=== PATIENT | male | born 1990 | race Two or more races ===

== ENCOUNTER 2022-10-04 17:09 | Emergency (ER) | payer OTHER ==
[~2022-10-04] VITALS: Ht 182.9 cm; Wt 150.0 kg
[2022-10-04] MEDS ORDERED: FAMOTIDINE 20 MG TAB PO ONE (19:45)
[2022-10-04] MEDS ORDERED: IBUPROFEN 400 MG TAB PO ONE (19:45)
[2022-10-04] MEDS ORDERED: ACETAMINOPHEN 325 MG TAB PO ONE (19:45)
[2022-10-04] MEDS ORDERED: ONDANSETRON ODT 4 MG TAB PO ONE ×2 (19:45→23:00)
[2022-10-04 20:41] LABS: Albumin 3.9 g/dL (3.4-5.0); Calcium 9.5 mg/dL (8.5-10.1); Potassium 4.3 mmol/L (3.5-5.1)
[2022-10-04 20:43] LABS: BUN/Creatinine Ratio 18.5; Basophils # (auto) 0 10 ^3/uL (0-0.2); Basophils % (auto) 0.3 % (0.0-2.0); Bilirubin, Total 0.6 mg/dL (0.2-1.0); Eosinophils # (auto) 0 10 ^3/uL (0-0.8); Eosinophils % (auto) 0.4 % (0.0-7.0); Hematocrit 46.1 % (41.0-53.0); Hemoglobin 15.8 g/dL (13.5-17.5); Lymphocytes # (auto) 2.1 10 ^3/uL (0.4-5.4); Lymphocytes % (auto) 19.5 % (10.0-50.0); Mean Corpuscular Hemoglobin 28.6 pg (28.0-32.0); Mean Corpuscular Hgb Conc. 34.3 g/dL (32.0-36.0); Mean Corpuscular Volume 83.5 fL (80.0-100.0); Monocytes # (auto) 0.6 10 ^3/uL (0-1.3); Monocytes % (auto) 5.6 % (0.0-12.0); Neutrophils # (auto) 7.8 10 ^3/uL (1.6-8.6); Neutrophils % (auto) 74.2 % (37.0-80.0); Red Blood Cells 5.52 10^6/uL (4.5-5.90); Total Protein 8.4 g/dL (6.4-8.2); White Blood Cell 10.6 10^3/uL (4.4-10.8)
[2022-10-04 20:59] LABS: Urine Bacteria NONE SEEN /hpf (None Seen); Urine Blood 1+ /uL (Negative); Urine Mucus FEW (None Seen); Urine Specific Gravity 1.032 (1.001-1.035); Urine WBC 1 /hpf (0 - 3)
[2022-10-04 21:12] LABS: Alcohol, Urine < 3.0 mg/dL (0-10); Amphetamine Screen, Urine POSITIVE (NEGATIVE); Barbiturate Scree,Urine NEGATIVE (NEGATIVE); Benzodiazephine Screen, Urine NEGATIVE (NEGATIVE); Cannabinoid Screen, Urine POSITIVE (NEGATIVE); Cocaine Screen, Urine POSITIVE (NEGATIVE); Opiate Scree,Urine NEGATIVE (NEGATIVE); Phencyclidine Screen, Urine NEGATIVE (NEGATIVE)
[2022-10-04] MEDS ORDERED: HALOPERIDOL LACTATE 5 MG/ML INJ VIAL IM ONE (22:15)
[2022-10-04] MEDS ORDERED: MORPHINE SULFATE 4 MG/ML SYR/VIAL IM ONE (23:00)
[2022-10-04] MEDS ORDERED: ONDA-144 PO (23:54)
[2022-10-04] MEDS ORDERED: FAMO20TA10 PO (23:54)
[2022-10-05 00:58] VITALS: BP 125/83
== END 2022-10-05 01:01 | disposition home or self-care (01) ==
LOC: ER 17:09
DX: K29.70 Gastritis, unspecified, without bleeding (principal); Z79.899 Other long term (current) drug therapy
CPT/HCPCS: 36415; 74176; 76705; 80053; 80307; 81001; 83690; 84484; 85025; 99284; Q0162

== ENCOUNTER → 2022-10-09 | Outpatient (CLI) | payer OTHER ==
[~2022-10-09] MED LIST: FAMO20TA10 PO; ONDA-144 PO
[2022-10-09 17:08] LABS: BUN/Creatinine Ratio 12.8; Calcium 9.4 mg/dL (8.5-10.1); Potassium 3.8 mmol/L (3.5-5.1)
[2022-10-09 18:45] LABS: Urine Specific Gravity 1.023 (1.001-1.035)
[2022-10-09 18:46] LABS: Urine Blood Trace /uL (Negative)
== END | disposition home or self-care (01) ==
LOC: LAB 16:08
PROVIDERS: ATTEND Internal Medicine
DX: Z00.00 Encounter for general adult medical examination without abnormal findings (principal); E66.01 Morbid (severe) obesity due to excess calories
CPT/HCPCS: 36415; 80048; 80061; 81001; 83036; 86703

== ENCOUNTER 2022-10-31 08:31 | Day surgery (SDC) | payer OTHER ==
[2022-10-28 12:06] LABS: Urine Bacteria NONE SEEN /hpf (None Seen); Urine Blood Negative /uL (Negative); Urine Mucus FEW (None Seen); Urine Specific Gravity 1.022 (1.001-1.035); Urine WBC <1 /hpf (0 - 3)
[2022-10-28 12:26] LABS: INR 0.91 (0.9-1.15)
[2022-10-28 12:32] LABS: Albumin 3.5 g/dL (3.4-5.0); Potassium 4.1 mmol/L (3.5-5.1)
[2022-10-28 12:35] LABS: BUN/Creatinine Ratio 17.3
[2022-10-28 12:38] LABS: Bilirubin, Total 0.4 mg/dL (0.2-1.0); Total Protein 7.8 g/dL (6.4-8.2)
[2022-10-28 13:18] LABS: Basophils # (auto) 0.1 10 ^3/uL (0-0.2); Basophils % (auto) 0.9 % (0.0-2.0); Eosinophils # (auto) 0.1 10 ^3/uL (0-0.8); Eosinophils % (auto) 1.1 % (0.0-7.0); Hematocrit 41.1 % (41.0-53.0); Hemoglobin 14.3 g/dL (13.5-17.5); Lymphocytes # (auto) 1.8 10 ^3/uL (0.4-5.4); Lymphocytes % (auto) 24.3 % (10.0-50.0); Mean Corpuscular Hgb Conc. 34.9 g/dL (32.0-36.0); Mean Corpuscular Volume 83.2 fL (80.0-100.0); Monocytes # (auto) 0.6 10 ^3/uL (0-1.3); Monocytes % (auto) 8.1 % (0.0-12.0); Neutrophils # (auto) 4.8 10 ^3/uL (1.6-8.6); Neutrophils % (auto) 65.6 % (37.0-80.0); Red Blood Cells 4.94 10^6/uL (4.5-5.90); Red Cell Distribution Width 14.2 % (11.8-14.3); White Blood Cell 7.3 10^3/uL (4.4-10.8)
[~2022-10-31] VITALS: Ht 185.4 cm; Wt 167.8 kg
[~2022-10-31 08:31] MED LIST changes: -FAMO20TA10 PO; -ONDA-144 PO; +PANT40TA2 PO
[2022-10-31] MEDS ORDERED: fentaNYL CITRATE 100 MCG/2 ML VL ONE (10:15)
[2022-10-31] MEDS ORDERED: MIDAZOLAM HCL 2MG/2ML 2ml VIAL (1mg/ml) ONE (10:15)
[2022-10-31] MEDS ORDERED: PROPOFOL 10 MG/ML 20 ML IV ONE (10:17)
[2022-10-31] MEDS ORDERED: ONDANSETRON HCL 4 MG/2 ML VIAL ONE (10:17)
[2022-10-31] MEDS ORDERED: LIDOCAINE 2% (LOCAL ANESTH.) PF 5ml SDV ONE (10:17)
[2022-10-31] MEDS ORDERED: ONDANSETRON HCL 4 MG/2 ML VIAL IV PRN (10:45)
[2022-10-31 10:56] VITALS: BP 108/60
== END 2022-10-31 10:27 | disposition home or self-care (01) ==
LOC: GI 08:31
PROVIDERS: ATTEND Internal Medicine Gastroenterology
DX: K29.50 Unspecified chronic gastritis without bleeding (principal); K21.9 Gastro-esophageal reflux disease without esophagitis; Z90.49 Acquired absence of other specified parts of digestive tract; Z20.822 Contact with and (suspected) exposure to COVID-19
CPT/HCPCS: 36415; 43239; 80053; 81001; 85025; 85610; 85730; J2001; J2250; J2405; J2704; J3010; J7030; U0003